=== PATIENT | male | born 1965 | race Caucasian/White ===

== ENCOUNTER 2016-10-30 14:40 | Inpatient (IN) | payer MEDICAID ==
--- NOTE | 2016-10-30 17:52 | DIRPT ---
CLINICAL DATA: Shortness of breath with generalized weakness, cough, and congestion for 4 days. EXAM: PORTABLE CHEST 1 VIEW COMPARISON: 01/12/2014. FINDINGS: The lungs are clear wiithout focal pneumonia, edema, pneumothorax or pleural effusion. The cardiopericardial silhouette is within normal limits for size. The visualized bony structures of the thorax are intact. Telemetry leads overlie the chest. IMPRESSION: No active disease. Electronically Signed By: Pramod Werner M.D. On: 10/30/2016 17:49
[2016-10-30 18:01] LABS: BLOOD UREA NITROGEN 9 MG/DL (9-20); CALC CORRECTED 8.5 MG/DL (8.4-10.2); CALCIUM 8.4 MG/DL (8.4-10.2); CALCULATED OSMOLALITY 273 MOs/Kg (270-290); CHLORIDE 111 mEq/L (98-107); GLUCOSE 81 MG/DL (70-99); SODIUM LEVEL 143 mEq/L (137-146); TOTAL PROTEIN 8.5 G/DL (6.3-8.2)
[2016-10-30 18:07] LABS: MPV 8.9 fL (7.4-10.4)
[2016-10-30 18:09] LABS: PARTIAL THROMB. TIME 25.3 SEC (22-35); PT-INR 1.2
--- NOTE | 2016-10-30 18:43 | EDPRACDOC ---
<Kurt Romo - Last Filed: 10/30/16 19:18> - General Information Information Source: Patient - History of Present Illness Onset: 4 days HPI: C/O SOB, productive cough (green), chest pressure, body aches, weakness, sore throat, diarrhea, DUMONT x 4 days. Denies fever, N/V, chnages in urine or BM. Pt has hx of cirrhosis with 1 yr stay in [facility], released 2 weeks ago. Prior hx of Hep C which was cleared. Med hx = banded esophageal varicies and abdominal varicies, splenomegaly. Current Symptoms: Reports: Cough, Sore Throat Shortness of Breath: Moderate Cough: Reports: Productive, Green Rhinorrhea: Reports: Clear Ear Symptoms: Reports: None Fever Severity/Quality: Reports: no fever Oral Intake: Normal Urinary Output: Normal Relevant History of: negative: None, Asthma, Bronchiolitis, COPD, Heart Failure (CHF), H1N1, Immunosuppression, Influenza A exposure, Influenza B exposure, Recent travel, Renal Disease, Other Associated Signs & Symptoms:: Reports: Cough, Headache, Sore Throat, Diarrhea <Adal Rm - Last Filed: 10/30/16 20:13> - General Information Chief Complaint: Flu-Like Symptoms Stated Complaint: FLU LIKE SYMPTOMS IMMUNE SYSTEM LOW Time Seen by Provider: 10/30/16 17:17 Home Medications: Home Medications Unk Blood Pressure 0 mg PO .SEE COMMENTS 10/30/16 Unk Lyrica 0 mg PO .SEE COMMENTS 10/30/16 Unk Thyroid 0 mg PO .SEE COMMENTS 10/30/16 Unk Vitamin D 0 mg PO .SEE COMMENTS 10/30/16 Allergies/Adverse Reactions: Allergies Allergy/AdvReac Type Severity Reaction Status Date / Time Penicillins Allergy Nausea/Vomi Verified 10/30/16 14:55 ting ED Past Medical History - History Reviewed Yes Nurses notes reviewed and agree except as marked - Patient Medical History Cardiac History: Reports: Hypertension GI/ History: Reports: Kidney Stones Musculoskeletal History: Reports: Arthritis Psychological History: Reports: Depression, Anxiety Systemic History: Reports: Hypothyroidism Surgical History: Reports: Hernia Surgery - Family Medical History Reports: Hypertension, Diabetes, Cancer, Cardiac Disorders - Social Medical History Smoking Status: Former smoker <Adal Rm - Last Filed: 10/30/16 20:13> EDM Review of Systems - Review of Systems ROS Negative Except as Marked: Yes All systems reviewed and were negative except as marked Constitutional: Weakness Throat: Pain Respiratory: Cough, Shortness of Breath, Sputum Cardiovascular: Chest Pain Neurological: Headache Musculoskeletal: Other (body aches) <Adal Rm - Last Filed: 10/30/16 20:13> - Physical Exam Last recorded Vital Signs: Last Vital Signs Temp 97.6 F 10/30/16 14:55 Pulse 74 10/30/16 18:32 Resp 20 10/30/16 18:32 BP 133/73 10/30/16 18:32 Pulse Ox 95 10/30/16 18:32 Oxygen Pulse Oxygen Saturation 95 O2 Device Oxygen Flow Rate Fraction of Inspired Oxygen ( FIO2) - GI Stool: Brown <Kurt Romo - Last Filed: 10/30/16 19:18> - Physical Exam Constitutional: Alert Oriented to: Time, Person, Place Last recorded Vital Signs: Last Vital Signs Temp 97.6 F 10/30/16 14:55 Pulse 74 10/30/16 18:32 Resp 20 10/30/16 18:32 BP 133/73 10/30/16 18:32 Pulse Ox 95 10/30/16 18:32 Oxygen Pulse Oxygen Saturation 95 O2 Device Oxygen Flow Rate Fraction of Inspired Oxygen ( FIO2) - HEENT Head: Normal Eye Exam: negative: Conjunctival Injection, Scleral Icterus Oropharynx: negative: Drooling TMJ: Normal Nose: No Symptoms Reported Neck: Normal - Respiratory/Cardiovascular Respiratory: Normal - CTA Cardiovascular: Tachycardia - GI Auscultation: Normal Palpation: Normal Tenderness: Moderate, LUQ Rectal Exam: Heme negative stool, Rectal Tone - Musculoskeletal Back: Normal Extremities: Normal - Integumentary Skin: Normal - Neurologic Mood Description: Normal Thought: Coherent Perception: Normal <Adal Rm - Last Filed: 10/30/16 20:13> - Results 10/30/16 17:45 10/30/16 17:45 WBC 1.2 xk/uL (3.8-10.8) L 10/30/16 17:45 RBC 3.31 xM/uL (4.70-6.10) L 10/30/16 17:45 Hgb 7.7 g/dL (14.0-18.0) L 10/30/16 17:45 Hct 24.7 % (42-52) L 10/30/16 17:45 MCV 75 fL (80-94) L 10/30/16 17:45 MCH 23.3 pg (27-32) L 10/30/16 17:45 MCHC 31.2 g/dl (33-36) L 10/30/16 17:45 RDW 20.6 % (11.5-14.5) H 10/30/16 17:45 Plt Count 26 xk/uL (130-400) L* 10/30/16 17:45 MPV 8.9 fL (7.4-10.4) 10/30/16 17:45 Neut % (Auto) Cancelled 10/30/16 17:45 Lymph % (Auto) Cancelled 10/30/16 17:45 [place] % (Auto) Cancelled 10/30/16 17:45 Eos % (Auto) Cancelled 10/30/16 17:45 Baso % (Auto) Cancelled 10/30/16 17:45 Absolute Neuts (auto) Cancelled 10/30/16 17:45 Absolute Lymphs (auto) Cancelled 10/30/16 17:45 Seg Neuts % (Manual) 66 % (45-76) 10/30/16 17:45 Lymphocytes % (Manual) 28 % (17-44) 10/30/16 17:45 Monocytes % (Manual) 2 % (0-10) 10/30/16 17:45 Eosinophils % (Manual) 4 % (0-5) 10/30/16 17:45 Absolute Lymphocytes 0.34 xk/uL (0.65-4.75) L 10/30/16 17:45 Toxic Granulation Tr 10/30/16 17:45 Platelet Estimate Dec (NORMAL) 10/30/16 17:45 RBC Morphology 1+ hypo 2+ micro 10/30/16 17:45 RBC Morphology 1+ hypo 2+ micro 10/30/16 17:45 PT 12.4 SEC (9.2-11.2) H 10/30/16 17:45 INR 1.2 10/30/16 17:45 APTT 25.3 SEC (22-35) 10/30/16 17:45 Sodium 143 mEq/L (137-146) 10/30/16 17:45 Potassium 3.8 mEq/L (3.5-5.1) 10/30/16 17:45 Chloride 111 mEq/L (98-107) H 10/30/16 17:45 Carbon Dioxide 25 mMOL/L (22-33) 10/30/16 17:45 Anion Gap 11 mEq/L (8-16) 10/30/16 17:45 BUN 9 MG/DL (9-20) 10/30/16 17:45 Creatinine 0.80 MG/DL (0.66-1.25) 10/30/16 17:45 Estimated GFR (MDRD) > 60 mL/min (>=60) 10/30/16 17:45 Glucose 81 MG/DL (70-99) 10/30/16 17:45 Calculated Osmolality 273 MOs/Kg (270-290) 10/30/16 17:45 Calcium 8.4 MG/DL (8.4-10.2) 10/30/16 17:45 Corrected Calcium 8.5 MG/DL (8.4-10.2) 10/30/16 17:45 Total Bilirubin 2.0 MG/DL (0.2-1.3) H 10/30/16 17:45 AST 44 IU/L (17-59) 10/30/16 17:45 ALT 35 IU/L (21-72) 10/30/16 17:45 Alkaline Phosphatase 76 IU/L (38-126) 10/30/16 17:45 Troponin I < 0.01 ng/mL (<.04) 10/30/16 17:45 Total Protein 8.5 G/DL (6.3-8.2) H 10/30/16 17:45 Albumin 3.9 G/DL (3.5-5.0) 10/30/16 17:45 Blood Type O POSITIVE 10/30/16 17:45 Antibody Screen Negative 10/30/16 17:45 Crossmatch See Detail 10/30/16 17:45 Lab Results 10/30/16 10/30/16 10/30/16 17:45 17:45 17:45 WBC 1.2 L RBC 3.31 L Hgb 7.7 L Hct 24.7 L MCV 75 L MCH 23.3 L MCHC 31.2 L RDW 20.6 H Plt Count 26 L* MPV 8.9 Neut % (Auto) Cancelled Lymph % (Auto) Cancelled [place] % (Auto) Cancelled Eos % (Auto) Cancelled Baso % (Auto) Cancelled Absolute Neuts (auto) Cancelled Absolute Lymphs (auto) Cancelled Seg Neuts % (Manual) 66 Lymphocytes % (Manual) 28 Monocytes % (Manual) 2 Eosinophils % (Manual) 4 Absolute Lymphocytes 0.34 L Toxic Granulation Tr Platelet Estimate Dec RBC Morphology 2+ micro PT 12.4 H INR 1.2 APTT 25.3 Sodium Potassium Chloride Carbon Dioxide Anion Gap BUN Creatinine Estimated GFR (MDRD) Glucose Calculated Osmolality Calcium Corrected Calcium Total Bilirubin AST ALT Alkaline Phosphatase Troponin I Total Protein Albumin Blood Type O POSITIVE Antibody Screen Negative Crossmatch See Detail 10/30/16 17:45 WBC RBC Hgb Hct MCV MCH MCHC RDW Plt Count MPV Neut % (Auto) Lymph % (Auto) [place] % (Auto) Eos % (Auto) Baso % (Auto) Absolute Neuts (auto) Absolute Lymphs (auto) Seg Neuts % (Manual) Lymphocytes % (Manual) Monocytes % (Manual) Eosinophils % (Manual) Absolute Lymphocytes Toxic Granulation Platelet Estimate RBC Morphology PT INR APTT Sodium 143 Potassium 3.8 Chloride 111 H Carbon Dioxide 25 Anion Gap 11 BUN 9 Creatinine 0.80 Estimated GFR (MDRD) > 60 Glucose 81 Calculated Osmolality 273 Calcium 8.4 Corrected Calcium 8.5 Total Bilirubin 2.0 H AST 44 ALT 35 Alkaline Phosphatase 76 Troponin I < 0.01 Total Protein 8.5 H Albumin 3.9 Blood Type Antibody Screen Crossmatch <Kurt Romo - Last Filed: 10/30/16 19:18> - Results 10/30/16 17:45 10/30/16 17:45 WBC 1.2 xk/uL (3.8-10.8) L 10/30/16 17:45 RBC 3.31 xM/uL (4.70-6.10) L 10/30/16 17:45 Hgb 7.7 g/dL (14.0-18.0) L 10/30/16 17:45 Hct 24.7 % (42-52) L 10/30/16 17:45 MCV 75 fL (80-94) L 10/30/16 17:45 MCH 23.3 pg (27-32) L 10/30/16 17:45 MCHC 31.2 g/dl (33-36) L 10/30/16 17:45 RDW 20.6 % (11.5-14.5) H 10/30/16 17:45 Plt Count 26 xk/uL (130-400) L* 10/30/16 17:45 MPV 8.9 fL (7.4-10.4) 10/30/16 17:45 PT 12.4 SEC (9.2-11.2) H 10/30/16 17:45 INR 1.2 10/30/16 17:45 APTT 25.3 SEC (22-35) 10/30/16 17:45 Sodium 143 mEq/L (137-146) 10/30/16 17:45 Potassium 3.8 mEq/L (3.5-5.1) 10/30/16 17:45 Chloride 111 mEq/L (98-107) H 10/30/16 17:45 Carbon Dioxide 25 mMOL/L (22-33) 10/30/16 17:45 Anion Gap 11 mEq/L (8-16) 10/30/16 17:45 BUN 9 MG/DL (9-20) 10/30/16 17:45 Creatinine 0.80 MG/DL (0.66-1.25) 10/30/16 17:45 Estimated GFR (MDRD) > 60 mL/min (>=60) 10/30/16 17:45 Glucose 81 MG/DL (70-99) 10/30/16 17:45 Calculated Osmolality 273 MOs/Kg (270-290) 10/30/16 17:45 Calcium 8.4 MG/DL (8.4-10.2) 10/30/16 17:45 Corrected Calcium 8.5 MG/DL (8.4-10.2) 10/30/16 17:45 Total Bilirubin 2.0 MG/DL (0.2-1.3) H 10/30/16 17:45 AST 44 IU/L (17-59) 10/30/16 17:45 ALT 35 IU/L (21-72) 10/30/16 17:45 Alkaline Phosphatase 76 IU/L (38-126) 10/30/16 17:45 Troponin I < 0.01 ng/mL (<.04) 10/30/16 17:45 Total Protein 8.5 G/DL (6.3-8.2) H 10/30/16 17:45 Albumin 3.9 G/DL (3.5-5.0) 10/30/16 17:45 Crossmatch See Detail 10/30/16 17:45 Lab Results 10/30/16 10/30/16 10/30/16 17:45 17:45 17:45 WBC 1.2 L RBC 3.31 L Hgb 7.7 L Hct 24.7 L MCV 75 L MCH 23.3 L MCHC 31.2 L RDW 20.6 H Plt Count 26 L* MPV 8.9 PT 12.4 H INR 1.2 APTT 25.3 Sodium Potassium Chloride Carbon Dioxide Anion Gap BUN Creatinine Estimated GFR (MDRD) Glucose Calculated Osmolality Calcium Corrected Calcium Total Bilirubin AST ALT Alkaline Phosphatase Troponin I Total Protein Albumin Crossmatch See Detail 10/30/16 17:45 WBC RBC Hgb Hct MCV MCH MCHC RDW Plt Count MPV PT INR APTT Sodium 143 Potassium 3.8 Chloride 111 H Carbon Dioxide 25 Anion Gap 11 BUN 9 Creatinine 0.80 Estimated GFR (MDRD) > 60 Glucose 81 Calculated Osmolality 273 Calcium 8.4 Corrected Calcium 8.5 Total Bilirubin 2.0 H AST 44 ALT 35 Alkaline Phosphatase 76 Troponin I < 0.01 Total Protein 8.5 H Albumin 3.9 Crossmatch - EKG EKG #1 EKG Time: 17:34 -: Yes EKG interpreted by me Rate: bpm: 84 [place]: Normal Rhythm: NSR Block: None Hypertrophy: None ST: Normal Comparison: 01/12/14 (NSR) - Diagnostic Imaging Chest Image interpreted by: Radiologist EXAM: PORTABLE CHEST 1 VIEW COMPARISON: 01/12/2014. FINDINGS: The lungs are clear wiithout focal pneumonia, edema, pneumothorax or pleural effusion. The cardiopericardial silhouette is within normal limits for size. The visualized bony structures of the thorax are intact. Telemetry leads overlie the chest. IMPRESSION: No active disease. Electronically Signed By: Pramod Werner M.D. On: 10/30/2016 17:49 <Adal Rm - Last Filed: 10/30/16 20:13> - Departure Yes I personally saw and evaluated the patient. Disposition: Admit IP To This Hospital Education/Counseling Given To: Patient Education/Counseling Given Regarding: Diagnosis, Treatment, Prognosis - Physician Consulted GI Time Called: 19:17 Provider Called: Feliciano Williamson [employer] Returned Call: 19:17 (give prbc) Hospitalist Time Called: 19:19 Provider Called: Jay Linares [employer] Returned Call: 19:19 <Kurt Romo - Last Filed: 10/30/16 19:18> <Adal Rm - Last Filed: 10/30/16 20:13> - Departure Condition: Stable Final Diagnosis: Thrombocytopenia, Weakness Cirrhosis Qualifiers: Hepatic cirrhosis type: other cirrhosis Qualified Code(s): K74.69 - Other cirrhosis of liver Anemia Qualifiers: Anemia type: unspecified type Qualified Code(s): D64.9 - Anemia, unspecified Referrals: None,No Provider [Primary Care Provider] - One Week Prescriptions: No Action Unk Vitamin D 0 mg PO .SEE COMMENTS Unk Thyroid 0 mg PO .SEE COMMENTS Unk Blood Pressure 0 mg PO .SEE COMMENTS Unk Lyrica 0 mg PO .SEE COMMENTS
[2016-10-30] MEDS ORDERED: MORPHINE 4 MG/ML INJECTION IV ONE (19:02)
[2016-10-30] MEDS ORDERED: ONDANSETRON HCL 4 MG/2 ML VIAL IM ONE (19:02)
[2016-10-30 19:04] LABS: SEG NEUTROPHIL 66 % (45-76)
[2016-10-30] MEDS ORDERED: ONDANSETRON HCL 4 MG/2 ML VIAL IV ONE (19:21)
[2016-10-30] MEDS ORDERED: Pharmacy Review for Metformin - IV Contrast Given SCH (20:00)
[2016-10-30 20:25] LABS: FOLATES 10.2 ng/mL (>2.76)
--- NOTE | 2016-10-30 20:25 | DIRPT ---
CLINICAL DATA: Generalized abdominal pain for 4 days. Splenomegaly. Cirrhosis. Nephrolithiasis. EXAM: CT ABDOMEN AND PELVIS WITH CONTRAST TECHNIQUE: Multidetector CT imaging of the abdomen and pelvis was performed using the standard protocol following bolus administration of intravenous contrast. CONTRAST: 100 mL Isovue 370 COMPARISON: 06/20/2014 FINDINGS: Lower chest: No acute findings. Hepatobiliary: Hepatic cirrhosis again demonstrated. Small benign-appearing cyst in the dome of the right hepatic lobe remains stable. No liver masses are identified. Portal veins are patent. Gallbladder is unremarkable. Recanalization periumbilical veins again seen consistent with portal venous hypertension. Pancreas: No mass, inflammatory changes, or other significant abnormality. Spleen: Severe splenomegaly again demonstrated, consistent with portal venous hypertension. Large upper abdominal venous collaterals are seen in the gastrohepatic and gastrosplenic ligaments. These are also seen extending inferiorly in the left retroperitoneum, with a large varicocele in the left inguinal canal. Thrombus is seen within 1 of these large venous collaterals in the gastrosplenic ligament on image 35 36/series 3. Adrenals/Urinary Tract: Several small renal cysts are again seen bilaterally as well as tiny less than 5 mm nonobstructive calculi in the right kidney. No evidence of ureteral calculi or hydronephrosis. unopacified urinary bladder is unremarkable in appearance. Stomach/Bowel: Gastroesophageal varices have decreased in size with embolization coronal seen in place. No evidence of obstruction, inflammatory process, or abnormal fluid collections. Vascular/Lymphatic: No pathologically enlarged lymph nodes. No evidence of abdominal aortic aneurysm. Reproductive: Large left-sided varicocele noted within inguinal canal. Other: Mild left upper quadrant ascites. Musculoskeletal: No suspicious bone lesions identified. IMPRESSION: Hepatic cirrhosis. Stable small right hepatic lobe cyst. No evidence of hepatic neoplasm. Stable severe splenomegaly, and large portosystemic collaterals within the abdomen and pelvis consistent with portal venous hypertension. New thrombus is seen within 1 large abdominal venous collateral within the gastrosplenic ligament. No significant change in large left-sided varicocele and mild ascites. Right nephrolithiasis. No evidence of ureteral calculi or hydronephrosis. Electronically Signed By: Kenn Jauregui M.D. On: 10/30/2016 20:22
[2016-10-30 20:26] LABS: ALL NEG? NO
[2016-10-30 20:33] LABS: MDMA* NEG (NEGATIVE); METHAMPHETAMINES NEG (NEGATIVE); OXYCODONE NEG (NEGATIVE)
--- NOTE | 2016-10-30 20:37 | HISTPHYS ---
- Chief Complaint cough, chills, not feeling well - History of Present Illness PRIMARY CARE PROVIDER: None. HPI: The patient is a 51 yo man who was released from detention 14 days ago and previously received his health care there, who has cirrhosis, who presents with not feeling well. He felt weak, and he had coughing that caused chest pain. He was told his immune system is low. He has known pancytopenia. In the past his hemoglobin was 10 but he reports that more recently his hemoglobin was 8, and despite transfusions he would still not get much past 8. WBCs were in the 2s previously but more recently have been approximately 1.5. He was receiving his care at the [facility] in [place], [place]. His cirrhosis is from Hepatitis C, but he received Hep C medication and reports he is now cured of hepatitis C. Onset: Chronic pancytopenia. Weakness and fatigue with coughing started several days ago. Duration: intermittent. Location: generalized weakness. Character: fatigue. Alleviated by: Nothing. Exacerbated by: Nothing. Associated Symptoms: No fever. Denies chills at this time. Coughing green sputum. No wheezing. Shortness of breath. No weight gain, enlargement of abdomen , or leg swelling. Chronic intermittent abdominal pain is not severe. Occasional nausea. Currently No vomiting, diarrhea, constipation, or bloody stool. Treatments: none at home except usual medications. - Medical History Cardiac History: Reports: Hypertension Respiratory History: Reports: Other GI/ History: Reports: Kidney Stones, Liver Failure (CIRRHOSIS, HEP C (TREATED) .) Musculoskeletal History: Reports: Arthritis (and chronic back pain) Systemic History: Reports: Anemia (PANCYTOPENIA), Hypothyroidism Psychological History: Reports: Depression, Anxiety Sleep apnea. - Surgical History Reports: Hernia Surgery (and surgery on scrotum) - Medictions/Allergies Allergies Penicillins Allergy (Verified 10/30/16 14:55) Nausea/Vomiting Current Medication List: Reviewed Home Medications Unk Blood Pressure 0 mg PO .SEE COMMENTS 10/30/16 Unk Lyrica 0 mg PO .SEE COMMENTS 10/30/16 Unk Thyroid 0 mg PO .SEE COMMENTS 10/30/16 Unk Vitamin D 0 mg PO .SEE COMMENTS 10/30/16 - Family History Reports: Hypertension, Diabetes, Cancer, Cardiac Disorders - Social History Smoking Status: Former smoker Social History: Denies: Alcohol Use, Substance Use Disorder - Review of Systems GENERAL: No Fever, chills, or diaphoresis. Positive for fatigue/malaise. HEENT: No ear pain or discharge. No nasal discharge or bleeding. No throat pain or swelling. No eye pain or eye redness. RESPIRATORY: Coughing green sputum. No wheezing. Shortness of breath. CARDIOVASCULAR: No chest pain or palpitations. GI: Chronic intermittent abdominal pain. Nausea. No vomiting, diarrhea, constipation, or bloody stool. NEUROLOGICAL: No headache or focal weakness. INTEGUMENT: no rashes, itching, or lesions. LYMPHATIC SYSTEM: no lymph node swelling or pain. MUSCULOSKELETAL: Chronic back pain. no new pain or joint swelling. GENITOURINARY: No dysuria or hematuria. ENDOCRINE: No polyuria or polydipsia. HEME: No chronic anemia, bleeding, or easy bruising. - Physical Exam Vital Signs: Initial Vitals Temperature 97.6 F 10/30/16 14:55 Pulse Rate 105 10/30/16 14:55 Respiratory Rate 18 10/30/16 14:55 Blood Pressure 147/89 10/30/16 14:55 Pulse Oxygen Saturation 99 10/30/16 14:55 Vital Signs - 24 hr 10/30/16 10/30/16 10/30/16 14:55 16:20 18:32 Temperature 97.6 F Pulse Rate 105 79 74 Respiratory 18 20 Rate Blood Pressure 147/89 136/86 133/73 Pulse Oxygen 99 95 Saturation 10/30/16 10/30/16 19:26 20:32 Temperature 98.0 F Pulse Rate 83 89 Respiratory 20 20 Rate Blood Pressure 139/86 137/81 Pulse Oxygen 99 97 Saturation Weight: 99.8 kg Height: 6 feet BMI: 29.8 - Other Exam Other Exam Findings: GENERAL: Ill-appearing, obese, in acute distress. HEENT: Normocephalic, atraumatic; pupils equal and round. Nares patent, without discharge or bleeding. No oropharyngeal lesions or erythema. Mucous membranes are dry. NECK: is supple, no masses, trachea midline. Large neck circumference. RESPIRATORY: Clear to auscultation bilaterally. Chest wall movements are symmetric. No use of accessory muscles to breathe. Decreased breath sounds bilaterally. No wheezing, rales, rhonchi. CARDIOVASCULAR: Normal S1, S2. No murmurs, rubs, or gallops. PMI non-displaced. Carotids: no carotid bruits. No bradycardia or tachycardia. DP pulses 2+ bilaterally. GI: soft, protuberant, normal active bowel sounds. Hepatomegaly. Likely splenomegaly. Tenderness in left upper quadrant and right upper quadrant. INTEGUMENT: Clean, dry, and intact. No rashes. No lesions. MUSCULOSKELETAL: Moving all extremities. No cyanosis. No clubbing. Edema: none bilaterally. NEUROLOGICAL: Cranial nerves 2-12 grossly intact. Motor 4/5 throughout. Reflexes : 2+ bilaterally. Babinski: toes downgoing bilaterally. Intact Finger to nose. Sensory grossly intact to light touch. Intact rapid alternating movements bilaterally. No pronator drift. PSYCHIATRIC: Fully oriented. Normal and appropriate affect. LYMPHATIC: No cervical lymphadenopathy. No supraclavicular lymphadenopathy. - Lab Results Laboratory Results - last 24 hr 10/30/16 10/30/16 10/30/16 17:30 17:45 17:45 WBC 1.2 L RBC 3.31 L Hgb 7.7 L Hct 24.7 L MCV 75 L MCH 23.3 L MCHC 31.2 L RDW 20.6 H Plt Count 26 L* MPV 8.9 Neut % (Auto) Cancelled Lymph % (Auto) Cancelled [place] % (Auto) Cancelled Eos % (Auto) Cancelled Baso % (Auto) Cancelled Absolute Neuts (auto) Cancelled Absolute Lymphs (auto) Cancelled Seg Neuts % (Manual) 66 Lymphocytes % (Manual) 28 Monocytes % (Manual) 2 Eosinophils % (Manual) 4 Absolute Lymphocytes 0.34 L Toxic Granulation Tr Platelet Estimate Dec RBC Morphology 2+ micro Retic Count (auto) 2.4 PT INR APTT Sodium 143 Potassium 3.8 Chloride 111 H Carbon Dioxide 25 Anion Gap 11 BUN 9 Creatinine 0.80 Estimated GFR (MDRD) > 60 Glucose 81 Calculated Osmolality 273 Calcium 8.4 Corrected Calcium 8.5 Iron TIBC % Saturation Ferritin Total Bilirubin 2.0 H AST 44 ALT 35 Alkaline Phosphatase 76 Troponin I < 0.01 Total Protein 8.5 H Albumin 3.9 Vitamin B12 Serum Folate Urine Opiates Screen Ur Oxycodone Screen Urine Methadone Screen Ur Barbiturates Screen Ur Tricyclics Screen Ur Phencyclidine Scrn Ur Amphetamines Screen U Methamphetamines Scrn Urine MDMA Screen U Benzodiazepines Scrn Urine Cocaine Screen Ur THC Screen Blood Type Antibody Screen Crossmatch 10/30/16 10/30/1617 17:45 17:45 18:50 WBC RBC Hgb Hct MCV MCH MCHC RDW Plt Count MPV Neut % (Auto) Lymph % (Auto) [place] % (Auto) Eos % (Auto) Baso % (Auto) Absolute Neuts (auto) Absolute Lymphs (auto) Seg Neuts % (Manual) Lymphocytes % (Manual) Monocytes % (Manual) Eosinophils % (Manual) Absolute Lymphocytes Toxic Granulation Platelet Estimate RBC Morphology Retic Count (auto) PT 12.4 H INR 1.2 APTT 25.3 Sodium Potassium Chloride Carbon Dioxide Anion Gap BUN Creatinine Estimated GFR (MDRD) Glucose Calculated Osmolality Calcium Corrected Calcium Iron 37.0 L TIBC 368 % Saturation 10.0 L Ferritin 6.7 L Total Bilirubin AST ALT Alkaline Phosphatase Troponin I Total Protein Albumin Vitamin B12 734 Serum Folate 10.20 Urine Opiates Screen Ur Oxycodone Screen Urine Methadone Screen Ur Barbiturates Screen Ur Tricyclics Screen Ur Phencyclidine Scrn Ur Amphetamines Screen U Methamphetamines Scrn Urine MDMA Screen U Benzodiazepines Scrn Urine Cocaine Screen Ur THC Screen Blood Type O POSITIVE Antibody Screen Negative Crossmatch See Detail 10/30/16 20:20 WBC RBC Hgb Hct MCV MCH MCHC RDW Plt Count MPV Neut % (Auto) Lymph % (Auto) [place] % (Auto) Eos % (Auto) Baso % (Auto) Absolute Neuts (auto) Absolute Lymphs (auto) Seg Neuts % (Manual) Lymphocytes % (Manual) Monocytes % (Manual) Eosinophils % (Manual) Absolute Lymphocytes Toxic Granulation Platelet Estimate RBC Morphology Retic Count (auto) PT INR APTT Sodium Potassium Chloride Carbon Dioxide Anion Gap BUN Creatinine Estimated GFR (MDRD) Glucose Calculated Osmolality Calcium Corrected Calcium Iron TIBC % Saturation Ferritin Total Bilirubin AST ALT Alkaline Phosphatase Troponin I Total Protein Albumin Vitamin B12 Serum Folate Urine Opiates Screen *positive* H Ur Oxycodone Screen Neg Urine Methadone Screen Neg Ur Barbiturates Screen Neg Ur Tricyclics Screen Neg Ur Phencyclidine Scrn Neg Ur Amphetamines Screen Neg U Methamphetamines Scrn Neg Urine MDMA Screen Neg U Benzodiazepines Scrn Neg Urine Cocaine Screen Neg Ur THC Screen Neg Blood Type Antibody Screen Crossmatch - Diagnostic Findings EK beats per minute. Normal sinus rhythm. Minimal voltage criteria for LVH. T-wave inversion in lead 3. Reviewed EKG personally. Chest x-ray viewed personally: EXAM: PORTABLE CHEST 1 VIEW COMPARISON: 01/12/2014. FINDINGS: The lungs are clear wiithout focal pneumonia, edema, pneumothorax or pleural effusion. The cardiopericardial silhouette is within normal limits for size. The visualized bony structures of the thorax are intact. Telemetry leads overlie the chest. IMPRESSION: No active disease. CT abdomen and pelvis: EXAM: CT ABDOMEN AND PELVIS WITH CONTRAST TECHNIQUE: Multidetector CT imaging of the abdomen and pelvis was performed using the standard protocol following bolus administration of intravenous contrast. CONTRAST: 100 mL Isovue 370 COMPARISON: 06/20/2014 FINDINGS: Lower chest: No acute findings. Hepatobiliary: Hepatic cirrhosis again demonstrated. Small benign-appearing cyst in the dome of the right hepatic lobe remains stable. No liver masses are identified. Portal veins are patent. Gallbladder is unremarkable. Recanalization periumbilical veins again seen consistent with portal venous hypertension. Pancreas: No mass, inflammatory changes, or other significant abnormality. Spleen: Severe splenomegaly again demonstrated, consistent with portal venous hypertension. Large upper abdominal venous collaterals are seen in the gastrohepatic and gastrosplenic ligaments. These are also seen extending inferiorly in the left retroperitoneum, with a large varicocele in the left inguinal canal. Thrombus is seen within 1 of these large venous collaterals in the gastrosplenic ligament on image 35 36/series 3. Adrenals/Urinary Tract: Several small renal cysts are again seen bilaterally as well as tiny less than 5 mm nonobstructive calculi in the right kidney. No evidence of ureteral calculi or hydronephrosis. unopacified urinary bladder is unremarkable in appearance. Stomach/Bowel: Gastroesophageal varices have decreased in size with embolization coronal seen in place. No evidence of obstruction, inflammatory process, or abnormal fluid collections. Vascular/Lymphatic: No pathologically enlarged lymph nodes. No evidence of abdominal aortic aneurysm. Reproductive: Large left-sided varicocele noted within inguinal canal. Other: Mild left upper quadrant ascites. Musculoskeletal: No suspicious bone lesions identified. IMPRESSION: Hepatic cirrhosis. Stable small right hepatic lobe cyst. No evidence of hepatic neoplasm. Stable severe splenomegaly, and large portosystemic collaterals within the abdomen and pelvis consistent with portal venous hypertension. New thrombus is seen within 1 large abdominal venous collateral within the gastrosplenic ligament. No significant change in large left-sided varicocele and mild ascites. Right nephrolithiasis. No evidence of ureteral calculi or hydronephrosis. - Assessment (1) Anemia associated with acute blood loss D62 - ACUTE POSTHEMORRHAGIC ANEMIA Acute Present on Admission: Yes Patient has anemia due to multiple causes. Has iron deficiency anemia. GI bleeding is suspected but was hemoccult negative on exam in the emergency department. Plan: GI consulted. Anemia labs drawn. Dr. Williamson recommended transfusing the patient, and transfusion orders have already been written in the emergency department. Monitor CBC. Hemoccult stool. Given pancytopenia, consult Heme-Onc. (2) Cirrhosis K74.60 - UNSPECIFIED CIRRHOSIS OF LIVER Acute Present on Admission: Yes Qualifiers: Hepatic cirrhosis type: other cirrhosis Ascites presence: A Qualified Code(s): K74.69 - Other cirrhosis of liver Acute on chronic issue. Plan: Consult GI. Start PPI q 12hrs. Lactulose. Check ammonia in AM. Beta jayshree. (3) Acute embolism and thrombosis of other specified veins I82.890 - ACUTE EMBOLISM AND THROMBOSIS OF OTHER SPECIFIED VEINS Acute Present on Admission: Yes CT scan showed: New thrombus is seen within 1 large abdominal venous collateral within the gastrosplenic ligament. Plan: Patient informed of CT findings. Patient has worsening pancytopenia. Anticoagulation is contraindicated at this time due to his severe anemia and possible GI bleed. Monitor. (4) Thrombocytopenia D69.6 - THROMBOCYTOPENIA, UNSPECIFIED Acute Present on Admission: Yes Worsening. Plan: Monitor for bleeding. Monitor CBC. (5) Pancytopenia D61.818 - OTHER PANCYTOPENIA Acute Present on Admission: Yes Acute on chronic. Plan: Anemia labs ordered. Consult Heme/Onc. Records have been requested. (6) Abnormal CT of the abdomen R93.5 - ABN FINDINGS ON DX IMAGING OF ABD REGIONS, INC RETROPERITON Acute Present on Admission: Yes IMPRESSION: Hepatic cirrhosis. Stable small right hepatic lobe cyst. No evidence of hepatic neoplasm. Stable severe splenomegaly, and large portosystemic collaterals within the abdomen and pelvis consistent with portal venous hypertension. New thrombus is seen within 1 large abdominal venous collateral within the gastrosplenic ligament. No significant change in large left-sided varicocele and mild ascites. Right nephrolithiasis. No evidence of ureteral calculi or hydronephrosis. Plan: Patient informed of results. Follow up with GI and with primary care for further evaluation. (7) Cough R05 - COUGH Acute Present on Admission: Yes No evidence of pneumonia on imaging. Plan: Monitor for any signs of infection. Cultures ordered. Case Care Discussed with: Patient, Nursing Staff
[2016-10-30] MEDS ORDERED: TRAMADOL HCL 50 MG TAB PO PRN (23:17)
[2016-10-30] MEDS: PANTOPRAZOLE 40 MG VIAL IV SCH (23:48)
[2016-10-31] MEDS ORDERED: ACETAMINOPHEN 325 MG/TAB TABLET PO PRN (01:17)
[2016-10-31] MEDS ORDERED: BENZONATATE 100 MG PERLES PO PRN (01:17)
[2016-10-31] MEDS ORDERED: PROMETHAZINE 25 MG/ML VIAL IV PRN (01:17)
[2016-10-31] MEDS ORDERED: GUAIFEN 100 MG-DEXTROMETH 10 MG PER 5 ML PO PRN (01:17)
[2016-10-31] MEDS ORDERED: SENNA CONCENTRATE TAB PO PRN (01:17)
[2016-10-31] MEDS ORDERED: ONDANSETRON HCL 4 MG/2 ML VIAL IV PRN (01:17)
[2016-10-31] MEDS ORDERED: Docusate Sodium 100 MG CAP PO PRN (01:17)
[2016-10-31] MEDS ORDERED: SIMETHICONE 80 MG TAB PO PRN (01:17)
[2016-10-31] MEDS ORDERED: TEMAZEPAM 15 MG CAP PO PRN (01:17)
[2016-10-31] MEDS ORDERED: ACETAMINOPHEN 325 MG SUPP PR PRN (01:17)
[2016-10-31] MEDS ORDERED: BISACODYL 5 MG TAB PO PRN (01:17)
[2016-10-31] MEDS: NS 1,000 ML IV SCH ×2 (01:37→08:15)
[2016-10-31] MEDS ORDERED: METHYLPREDNISOLONE 125 MG/2 ML VIAL IV SCH (02:00)
[2016-10-31 05:18] LABS: MPV 9.4 fL (7.4-10.4)
[2016-10-31 05:23] LABS: BLOOD UREA NITROGEN 7 MG/DL (9-20); CALC CORRECTED 8.8 MG/DL (8.4-10.2); CALCIUM 7.6 MG/DL (8.4-10.2); CALCULATED OSMOLALITY 266 MOs/Kg (270-290); CHLORIDE 111 mEq/L (98-107); GLUCOSE 85 MG/DL (70-99); SODIUM LEVEL 140 mEq/L (137-146); TOTAL PROTEIN 6.8 G/DL (6.3-8.2)
[2016-10-31 08:04] LABS: SEG NEUTROPHIL 62 % (45-76)
[2016-10-31] MEDS ORDERED: METOPROLOL TARTRATE 25 MG TAB PO SCH (09:00)
[2016-10-31 09:27] VITALS: BP 116/77; PULSE 82; TEMP 98.7
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
[2016-10-31] MEDS ORDERED: LACTULOSE 20 GM/30 ML ORAL SOLN PO SCH (11:00)
[2016-10-31] MEDS: PANTOPRAZOLE 40 MG VIAL IV SCH (12:07)
--- NOTE | 2016-10-31 12:10 | PCM.DCS92 ---
- Final/Secondary Discharge Diagnosis (1) Anemia of chronic disease Acute D63.8 - ANEMIA IN OTHER CHRONIC DISEASES CLASSIFIED ELSEWHERE Present on Admission: Yes Comment: Status post transfusion of 2 units packed red blood cells. No evidence of active bleeding. Rectal exam twice has been negative. Blood counts are centrally unchanged from previous CBCs over the last year. This is related to underlying cirrhosis. (2) Cirrhosis Acute K74.60 - UNSPECIFIED CIRRHOSIS OF LIVER Present on Admission: Yes other cirrhosis A K74.69 - Other cirrhosis of liver Comment: Hepatitis-C has been treated in the shelter system. Appreciate GI consultation. Continue proton pump inhibitor, nadolol, and iron supplementation. Dr. Williamson will follow up with him as an outpatient and perform transplant assessment. (3) Pancytopenia Acute D61.818 - OTHER PANCYTOPENIA Present on Admission: Yes Comment: This is been a chronic problem, counts are stable over the last year. This is his baseline and can be monitored by GI and his primary physician as an outpatient. (4) Weakness Acute R53.1 - WEAKNESS Present on Admission: Yes Comment: Feels some better today with transfusion. (5) Acute embolism and thrombosis of other specified veins Acute I82.890 - ACUTE EMBOLISM AND THROMBOSIS OF OTHER SPECIFIED VEINS Present on Admission: Yes Comment: New thrombus in abdominal venous collateral vein within the gastrosplenic ligament. No treatment indicated and would also be contraindicated at this time due to his underlying cirrhosis, pancytopenia, and esophageal varices Discharge Disposition: Home Discharge Condition: Stable Cognitive Discharge Status: Unimpaired Fuctional Discharge Status: Independent Physician Follow up/Referrals: None,No Provider [Primary Care Provider] - One Week Feliciano Williamson MD [Staff Physician] - 1-2 weeks Home Medications / New Prescriptions: New Ferrous Sulfate [Iron] 325 mg PO BID #60 tablet Nadolol [Corgard] 40 mg PO DAILY #30 tablet Pantoprazole Sodium [Protonix] 40 mg PO 0600 #30 tablet Tramadol HCl [Ultram] 50 mg PO Q8H PRN #30 tablet PRN Reason: Moderate To Severe Pain Discontinued Unk Vitamin D 0 mg PO .SEE COMMENTS Unk Thyroid 0 mg PO .SEE COMMENTS Unk Blood Pressure 0 mg PO .SEE COMMENTS Unk Lyrica 0 mg PO .SEE COMMENTS O2 Device: Nasal Cannula Diet at Discharge: Other (Low-protein, low acidic heart healthy diet) Activity: As Tolerated Call Office For: Worsening Symptoms - DC Summary Notes Hospital Course Note:: Discharge summary on patient named JAIRO ELLIS admitted to [facility] on 10/30/16 by Jay Linares MD. Date of discharge is []. Mr. Ellis is a 51-year-old white male with a history of end-stage liver disease due to history of hepatitis C and remote history of alcohol abuse who was discharged from shelter facility 14 days ago. He presented to the emergency room with complaint of generalized weakness. He was found to be pancytopenic with a white count of 1.2, a hemoglobin of 7.7 and a platelet count of 26. He states that this has been his baseline for the last year and that despite transfusions he has not had a hemoglobin greater than 8. He does have significant splenomegaly and was also found to have a thrombosed vein within his gastrosplenic ligament. GI was called from the emergency room. They recommended symptomatic transfusion and discharge home to outpatient follow-up. Instead he was admitted overnight for transfusion. He has received 2 units of pack red blood cells and feels a little bit better. His vitals and other evaluation have been stable and his blood counts appear to be at baseline. Dr. Williamson with Gastroenterology has seen him in consultation and feels that he is stable to be discharged monitored as an outpatient. Because he has very little other medical history and has not been drinking alcohol he likely will be a good transplant candidate and Dr. Williamson will monitor this as an outpatient. We have gone ahead and started him on nadolol, ferrous sulfate, and Protonix. I have educated him on a low-protein low acidic diet. Dr. Williamson will see him in follow-up in the next 1-2 weeks and he is to follow up with his primary physician in the next 1-2 weeks. At the time of discharge vitals are stable and he is safe for discharge home. Total Time: 45 minutes - Physical Exam Vital Signs: Last Vital Signs Temp 98.7 F 10/31/16 09:25 Pulse 82 10/31/16 09:25 Resp 20 10/31/16 09:25 BP 116/77 10/31/16 09:25 Pulse Ox 100 10/31/16 09:25 Oxygen Pulse Oxygen Saturation 100 O2 Device Nasal Cannula Oxygen Flow Rate 3 Fraction of Inspired Oxygen ( FIO2) Constitutional: No apparent distress, Alert, Well nourished. negative: Well appearing (chronically ill appearing) Oriented to: Time, Person, Place - HEENT Head: Normal Eye: Normal Oropharynx: Normal Nose: No Symptoms Reported - Respiratory/Cardiovascular Respiratory: Normal - CTA. negative: Rales, Rhonchi, Wheezes Cardiovascular: Normal - GI Auscultation: Normal Palpation: Normal Tenderness: Moderate, LUQ Rectal Exam: Heme negative stool, Rectal Tone - Musculoskeletal Back: Normal Extremities: Normal - Integumentary Skin: Normal Lymphatics: Normal - Neurologic Memory Impaired: Normal Motor Function: Normal Cranial Nerve: Normal Cerebellar: Normal Mood Description: Normal Thought: Coherent Perception: Normal
[2016-10-31] MEDS ORDERED: NADOLOL 40 MG TAB PO SCH (13:00)
[2016-10-31] MEDS ORDERED: FERROUS SULFATE 324 MG TAB PO SCH (18:00)
[2016-11-01] MEDS ORDERED: PANTOPRAZOLE 40 MG TAB PO SCH (06:00)
== END 2016-10-31 13:43 | disposition home or self-care (01) | DRG 433 ==
LOC: ED 14:40 → MPS3 20:33
PROVIDERS: ADMIT Internal Medicine; ATTEND Hospitalist
PROC: 30233N1 Transfusion of Nonautologous Red Blood Cells into Peripheral Vein, Percutaneous Approach (ICD-10-PCS; principal; 2016-10-30)
DX: K74.69 Other cirrhosis of liver (principal); D61.818 Other pancytopenia; I82.890 Acute embolism and thrombosis of other specified veins; D69.6 Thrombocytopenia, unspecified; R51 Headache; D63.8 Anemia in other chronic diseases classified elsewhere; R93.5 Abnormal findings on diagnostic imaging of other abdominal regions, including retroperitoneum; R53.1 Weakness; I10 Essential (primary) hypertension; R05 Cough; E03.9 Hypothyroidism, unspecified; Z86.19 Personal history of other infectious and parasitic diseases; Z87.891 Personal history of nicotine dependence; D73.1 Hypersplenism
CPT/HCPCS: 36415; 36430; 71010; 74177; 80053; 80307; 82140; 82607; 82728; 82746; 83540; 83550; 84484; 85007; 85027; 85045; 85610; 85730; 86850; 86900; 86901; 86920; 87040; 87086; 93005; 96374; 96375; 99284; A9698; J2270; J2405; J3490; P9016; S0164